=== PATIENT | female | born 1975 | race Caucasian/White ===

== ENCOUNTER 2019-07-25 09:25 | Outpatient (RCR) | payer OTHER, SELFPAY | END 2019-08-14 23:59 | disposition home or self-care (01) | LOC: SPT 09:25 | PROVIDERS: PCP Family Medicine; Referring Provider Podiatrist Foot & Ankle Surgery; Visit Provider Podiatrist Foot & Ankle Surgery | DX: M76.71 Peroneal tendinitis, right leg (principal) | CPT/HCPCS: 97035; 97140; 97161 ==

== ENCOUNTER 2019-08-15 06:00 | Outpatient (RCR) | payer OTHER, SELFPAY | END 2019-09-13 23:59 | disposition home or self-care (01) | LOC: SPT 06:00 | PROVIDERS: PCP Family Medicine; Visit Provider Podiatrist Foot & Ankle Surgery | DX: M76.71 Peroneal tendinitis, right leg (principal) | CPT/HCPCS: 97035; 97140 ==

== ENCOUNTER 2020-06-28 09:48 | Outpatient (CLI) | payer OTHER, SELFPAY ==
--- NOTE | 2020-06-28 09:53 | MM_ITS ---
WS: [id number] BILATERAL DIGITAL SCREENING MAMMOGRAPHY WITH CAD CLINICAL INFORMATION: SCREENING HISTORY: Screening mammogram. No current complaints. COMPARISON: TECHNIQUE: Bilateral CC and MLO views. FINDINGS: The breasts are composed of heterogeneous fibroglandular density tissue, which can limit the detectio n of small underlying mass lesions. 7 mm ovoid density upper outer right breast. This appears new fro m previous. Recommend right diagnostic mammography and ultrasound for further evaluation. Left breast is unchanged and unremarkable. MM/[place] [id number] IMPRESSION: BI-RADS: 0-Incomplete: Need additional imaging evaluation FOLLOW UP: Need Additional Imaging RECOMMEND RIGHT DIAGNOSTIC MAMMOGRAPHY AND ULTRASOUND FOR FURTHER EVALUATION.
== END 2020-06-28 09:49 | disposition home or self-care (01) ==
LOC: RADSHAW 09:50
PROVIDERS: PCP Family Medicine; Visit Provider Family Medicine
DX: Z12.31 Encounter for screening mammogram for malignant neoplasm of breast (principal); N63.11 Unspecified lump in the right breast, upper outer quadrant
CPT/HCPCS: 77067

== ENCOUNTER 2020-07-16 08:18 | Outpatient (CLI) | payer OTHER, SELFPAY ==
--- NOTE | 2020-07-16 08:21 | US_ITS ---
WS: [id number] RIGHT DIGITAL MAMMOGRAPHY WITH CAD CLINICAL INFORMATION: ABNORMAL MAMMOGRAM TECHNIQUE: 4 views of the right breast were obtained. FINDINGS: Scattered fibroglandular densities of the right breast. Stable 7 mm ovoid density upper outer right breast. This is unchanged from previous. Ultrasound is pe nding. ULTRASOUND BREAST RIGHT TECHNIQUE: Ultrasound right breast focused area of concern. CLINICAL INFORMATION: ABNORMAL MAMMOGRAM COMPARISON: None. FINDINGS: Ultrasound right breast at the 9:00 to 12:00 position. No suspicious cystic or solid lesions. Benign lymph node at the 9:00 position 3 cm from the nipple measuring 5 mm with normal fatty hilum. No lesio ns to target for biopsy. US/US breast RT limited* [id number] IMPRESSION: BI-RADS: 2-Benign FOLLOW UP: 1 Year Follow-up Recommend return to annual screening mammography.
== END 2020-07-16 08:19 | disposition home or self-care (01) ==
LOC: RADSHAW 08:19
PROVIDERS: PCP Family Medicine; Visit Provider Family Medicine
DX: R92.8 Other abnormal and inconclusive findings on diagnostic imaging of breast (principal)
CPT/HCPCS: 76642; 77065

== ENCOUNTER 2021-10-15 10:51 | Outpatient (CLI) | payer OTHER, SELFPAY ==
--- NOTE | 2021-10-15 11:03 | MM_ITS ---
WS: [id number] SCREENING DIGITAL BREAST TOMOSYNTHESIS MAMMOGRAM WITH CAD HISTORY: SCREENING COMPARISON: 07/16/2020, 06/28/2020 and 10/28/2016 Bilateral CC and MLO with tomosynthesis and synthetic mammography submitted. Computer aided detection analyzed. Breast composition: There are scattered areas of fibroglandular density. Slight change in the asymmet ry in the upper outer quadrant of the LEFT breast in the posterior depth. On the CC projection this i s not completely included. This asymmetry has been present on prior studies but appears more prominen t on today's examination. RIGHT breast is negative. MM/[place] [id number] IMPRESSION: BI-RADS: 0-Incomplete: Need additional imaging evaluation FOLLOW UP: Need Additional Imaging LEFT breast: Spot compression views (CC and MLO). Exaggerated LEFT CC and True ML. Ultrasound to follow if abnormality persists.
--- NOTE | 2021-11-21 11:21 | SUR.OPER ---
Spoke to Sergei at DR. Beauchamp office on 11/21/21 pt is going to [facility] in [place] to have US Biopsy on Left Breast. Sent images on 11/20/21. GEORGIE
== END 2021-10-15 10:52 | disposition home or self-care (01) ==
PROVIDERS: PCP Family Medicine; Visit Provider Family Medicine
DX: Z12.31 Encounter for screening mammogram for malignant neoplasm of breast (principal)
CPT/HCPCS: 77063; 77067

== ENCOUNTER 2021-11-07 08:08 | Outpatient (CLI) | payer OTHER, SELFPAY ==
--- NOTE | 2021-11-07 08:11 | MM_ITS ---
WS: [id number] ADDITIONAL VIEWS LEFT MAMMOGRAM with tomosynthesis. LEFT BREAST ULTRASOUND HISTORY: ABNORMAL MAMMO COMPARISON: 10/15/2021 and 06/28/2020 and 10/28/2016 LEFT MAMMOGRAM: Spot compression views and true ML with tomosynthesis and sympathetic mammography. Irregular asymmetry persist in the upper outer quadrant of the LEFT breast near 1-2 o'clock. This is at a posterior depth and the asymmetry measures 15 mm. No calcification. LEFT BREAST ULTRASOUND 2-D and color Doppler imaging submitted. Spiculated hypoechoic mass in the LEFT breast at 1:00, 5 cm from the nipple. Posterior shadowing. Mas s measures 1.3 x 0.7 cm. Mild peripheral increased vascularity. MM/[place] [id number] IMPRESSION: BI-RADS: 4-Suspicious Finding-Biopsy Should Be Considered FOLLOW UP: Biopsy Recommended Ultrasound-guided biopsy recommended LEFT breast mass at 1:00. Notified Leticia Luna MD at 11/07/2021 1:28 PM.
== END 2021-11-07 08:09 | disposition home or self-care (01) ==
LOC: RAD 08:09
PROVIDERS: PCP Family Medicine; Visit Provider Family Medicine
DX: R92.8 Other abnormal and inconclusive findings on diagnostic imaging of breast (principal); N63.21 Unspecified lump in the left breast, upper outer quadrant
CPT/HCPCS: 76642; 77061

== ENCOUNTER 2023-07-23 13:37 | Outpatient (CLI) | payer OTHER, SELFPAY ==
[2023-07-23 14:52] LABS: Add Urine Microscopic? YES; Bilirubin Urine Neg (Negative); Blood Urine 3+ (Negative); Glucose Urine UA Norm (Normal); Ketones Urine Negative (Negative); Leukocyte Esterase Urine 1+ (Negative); Nitrate Urine Negative (Negative); Protein Urine Neg (Negative); Specific Gravity, Urine 1.005 (1.005-1.030); Urine Appearance SL Hazy (CLEAR); Urine Color Light yellow (Yellow); Urobilinogen Urine Norm (Negative); pH Urine 5 (5-7)
[2023-07-23 15:13] LABS: Add Urine Culture? Yes; Bacteria Urine 1+ /hpf; Oval Fat Bodies Urine 1+ /hpf; Squamous Epithelial Cell Urine 0-4 /hpf (0-5)
== END 2023-07-23 13:38 | disposition home or self-care (01) ==
PROVIDERS: PCP Family Medicine; Visit Provider Family Medicine
DX: R30.0 Dysuria (principal)
CPT/HCPCS: 81001; 87077; 87086; 87186

== ENCOUNTER 2024-02-25 14:17 | Outpatient (CLI) | payer OTHER, SELFPAY ==
--- NOTE | 2024-02-25 14:27 | XRR_ITS ---
PROCEDURE INFORMATION: Exam: XR Lumbosacral Spine Exam date and time: 02/25/2024 2:32 PM Age: 48 years old Clinical indication: Low back pain; Patient HX: HX of breast cancer; Additional info: Acutre midline back pain TECHNIQUE: Imaging protocol: Radiologic exam of the lumbosacral spine. Views: 2 or 3 views. COMPARISON: CR XR thoracic spine 2V [id number] 02/25/2024 2:32 PM FINDINGS: Bones/joints: No significant disc space narrowing. Mild anterior lipping at multiple levels. The pedicles are intact. Soft tissues: Paravertebral soft tissues are normal. XR/XR lumbar spine 2-3V* [id number] IMPRESSION: No significant abnormality.
--- NOTE | 2024-02-25 14:27 | XRR_ITS ---
PROCEDURE INFORMATION: Exam: XR Thoracic Spine Exam date and time: 02/25/2024 2:32 PM Age: 48 years old Clinical indication: Pain in thoracic spine; Patient HX: HX of breast cancer; Additional info: Acute midline back pain TECHNIQUE: Imaging protocol: Radiologic exam of the thoracic spine. Views: 3 views. COMPARISON: CR XR lumbar spine 2-3V* [id number] 02/25/2024 2:32 PM FINDINGS: Bones/joints: Slight articular surface narrowing and spurring. The pedicles are intact. No fracture. No lytic or sclerotic bone lesion. Soft tissues: Unremarkable. XR/XR thoracic spine 2V [id number] IMPRESSION: Mild degenerative changes.
== END 2024-02-25 14:18 | disposition home or self-care (01) ==
PROVIDERS: PCP Family Medicine; Visit Provider Internal Medicine Medical Oncology
DX: M54.9 Dorsalgia, unspecified (principal)
CPT/HCPCS: 72070; 72100

== ENCOUNTER 2024-03-24 06:55 | Outpatient (CLI) | payer OTHER, SELFPAY ==
--- NOTE | 2024-03-24 06:59 | MR_ITS ---
WS: [id number] MRI THORACIC SPINE WITHOUT CONTRAST TECHNIQUE: Sagittal T1, T2 and STIR imaging. Axial T2 imaging. Noncontrast imaging obtained. CLINICAL INFORMATION: THORACIC PAIN COMPARISON: None. FINDINGS: Mild thoracic kyphosis. No acute compression. No high-grade central canal stenosis. Cord signal is no rmal. A few tiny disc protrusions in the midthoracic spine more prominent at T5-T6, T6-T7, T7-T8 with slight effacement of the ventral thecal sac. Mild facet arthropathy lower thoracic spine. No signifi cant spinal canal or foraminal narrowing. Adrenal glands are normal. MR/MR thoracic spin wo con* [id number] IMPRESSION: 1. Mild thoracic kyphosis. No acute compression. 2. No significant central canal stenosis. Cord signal is normal. 3. A few tiny protrusions in the mid thoracic spine T5-T7 without significant central canal stenosis. 4. Mild facet arthropathy lower thoracic spine.
== END 2024-03-24 06:56 | disposition home or self-care (01) ==
LOC: RAD 06:56
PROVIDERS: PCP Family Medicine; Visit Provider Family Medicine
DX: M40.294 Other kyphosis, thoracic region (principal); M47.894 Other spondylosis, thoracic region
CPT/HCPCS: 72146

== ENCOUNTER → 2024-07-11 13:47 | Outpatient (BNVA) | payer OTHER, SELFPAY | PROVIDERS: PCP Family Medicine; Visit Provider Family Medicine | DX: R39.9 Unspecified symptoms and signs involving the genitourinary system (principal) | CPT/HCPCS: 81000 ==

== ENCOUNTER 2024-07-12 07:09 | Outpatient (CLI) | payer OTHER, SELFPAY ==
--- NOTE | 2024-07-12 07:19 | XRR_ITS ---
PROCEDURE INFORMATION: Exam: XR Right Hip Exam date and time: 07/12/2024 7:43 AM Age: 48 years old Clinical indication: Hip pain; Right hip; Additional info: Right hip pain and R si joint pain TECHNIQUE: Imaging protocol: Radiologic exam of the right hip. Views: 1 view hip with pelvis when performed. COMPARISON: CR XR lumbar spine 2-3V* [id number] 02/25/2024 2:32 PM FINDINGS: Bones/joints: There is normal anatomic alignment of the right hip. No evidence of a fracture or destructive bone lesion. No significant osteoarthritic changes appreciated. No evidence of right sacroiliitis. The sacrum is intact. The pubic rami and right iliac bone are intact. Soft tissues: Unremarkable. XR/XR hip RT 2-3V wo/w pel* [id number] IMPRESSION: Unremarkable right hip and right sacroiliac joint.
== END 2024-07-12 07:10 | disposition home or self-care (01) ==
PROVIDERS: PCP Family Medicine; Visit Provider Family Medicine
DX: M25.551 Pain in right hip (principal)
CPT/HCPCS: 73502